=== PATIENT | male | born 1990 | race Two or more races ===

== ENCOUNTER 2022-02-01 20:07 | Emergency (ER) | payer SELFPAY ==
[~2022-02-01] VITALS: Ht 175.3 cm; Wt 80.0 kg
[2022-02-01 20:48] VITALS: BP 112/70
== END 2022-02-01 21:42 | disposition home or self-care (01) ==
LOC: ER 20:07
DX: F91.8 Other conduct disorders (principal); R20.2 Paresthesia of skin
CPT/HCPCS: 99283

== ENCOUNTER 2022-02-01 21:09 | Emergency (ER) | payer SELFPAY | END 2022-02-01 21:10 | disposition left against medical advice (07) | LOC: ER 21:09 | DX: Z53.21 Procedure and treatment not carried out due to patient leaving prior to being seen by health care provider (principal) ==